=== PATIENT | female | born 1960 | race Two or more races ===

== ENCOUNTER 2021-05-06 09:19 | Emergency (ER) | payer MEDICAID ==
[~2021-05-06] VITALS: Ht 149.9 cm; Wt 60.0 kg
[~2021-05-06 09:19] MED LIST: ACYC-40 PO; ARIP5TAB13 PO; CLON-364 PO; LEVO88TA4 PO; PARO30TA3 PO; TRAZ50TA66 PO; Will bring list DOS
--- NOTE | 2021-05-06 09:20 | NUR ---
PT ANSHU FROM [facility] FOR C/O L-SIDED SUDDEN CP NONRADIATING. PT ALSO C/O RINGING IN BOTH EARS. PT HR IS 46, DENIES SOB/FATIGUE. PT RECEIVED 324 ASA ROOF SHINGLER. B. PT AXOX4, CHANGED INTO GOWN, ALL MONITORS IN PLACE, CALL LIGHT WITHIN REACH. SON AT BS.
--- NOTE | 2021-05-06 09:45 | NUR ---
REPORT TO ALEX NEGRO
--- NOTE | 2021-05-06 09:50 | NUR ---
Pt report received from ALEX Herrera and care assumed. Pt assessment completed. Pt states CP has resolved with rest with noted SB at 45bpm on monitor with good BP and sats 100% on RA. Pt states both ears hurt for the last 3 days with dry, hot, painful gums and tongue reported. Orders noted with magic mouthwash ordered.
--- NOTE | 2021-05-06 10:27 | NUR ---
Pt assisted to restroom and back. geochemical laboratory technician already completed draw. PCXR tech present upon our return to room. Pt tolerated standing and walking without return of CP and HR still 48 bpm upon placement back on monitor.
[2021-05-06] MEDS ORDERED: maalox/diphenh/lido/sucralfate 5 ML PO PRN (10:30)
[2021-05-06 10:33] LABS: BASOPHILS % (AUTO) 1 % (0-1); EOSINOPHILS % (AUTO) 1 % (1-7); LYMPHOCYTES % (AUTO) 26 % (22-44); MEAN CORPUSCULAR HEMOGLOBIN 32.7 pg (27.0-34.8); MEAN CORPUSCULAR HGB CONC 34.2 g/dL (32.4-35.8); MEAN PLATELET VOLUME 8.6 fL (7.4-10.4); MONOCYTES % (AUTO) 7 % (2-9); NEUTROPHILS % (AUTO) 65 % (42-75); PLATELET COUNT 282 x10^3/uL (130-400); RED BLOOD COUNT 3.98 x10^6/uL (3.82-5.3); RED CELL DISTRIBUTION WIDTH 13.5 % (9.6-15.2)
[2021-05-06 10:43] LABS: ALBUMIN 3.9 g/dL (3.4-5.0); ANION GAP 4 mmol/L (5-15); CALCIUM 9.1 mg/dL (8.5-10.1); CHLORIDE 108 mmol/L (98-107)
[2021-05-06 10:49] LABS: ALANINE AMINOTRANSFERASE 51 U/L (12-78); ALKALINE PHOSPHATASE 99 U/L (45-117); BILIRUBIN,TOTAL 0.5 mg/dL (0.2-1.0); TOTAL PROTEIN 7.6 g/dL (6.4-8.2); TROPONIN I < 0.015 ng/mL (0.000-0.045)
--- NOTE | 2021-05-06 10:55 | NUR ---
All lab and radiology results reviewed and chart marked for recheck by . Awaiting Magic Mouthwash from pharmacy to admin as ordered.
--- NOTE | 2021-05-06 11:03 | NUR ---
ED board notes that pt is to be d/c'd home. Still awaiting Magic mouthwash from pharmacy for pt as ordered.
[2021-05-06 11:37] VITALS: BP 129/72
== END 2021-05-06 11:39 | disposition home or self-care (01) ==
LOC: ED 11:15
DX: H65.03 Acute serous otitis media, bilateral (principal); R07.89 Other chest pain; K12.0 Recurrent oral aphthae
CPT/HCPCS: 36415; 71045; 80053; 84484; 85025; 93005; 99285

== ENCOUNTER 2021-05-11 01:20 | Emergency (ER) | payer MEDICAID ==
[~2021-05-11] VITALS: Ht 157.5 cm; Wt 70.0 kg
--- NOTE | 2021-05-11 01:52 | NUR ---
PT AMBULATORY W/ A STEADY GAIT TO THE BR, ACCOMPANIED BY SON.
[2021-05-11] MEDS ORDERED: KETOROLAC 30 MG/1 ML ONE (01:55)
[2021-05-11] MEDS ORDERED: CYCLOBENZAPRINE 10 MG TABLET ONE (01:55)
[2021-05-11] MEDS ORDERED: KETOROLAC 30 MG/1 ML IM ONE (02:00)
[2021-05-11] MEDS ORDERED: CYCLOBENZAPRINE 10 MG TABLET PO ONE (02:00)
[2021-05-11 02:04] VITALS: BP 118/55
--- NOTE | 2021-05-11 02:20 | NUR ---
Patient given discharge instructions and they have confirmed that they understand the instructions. Patient ambulatory with steady gait.
== END 2021-05-11 02:21 | disposition home or self-care (01) ==
LOC: ED 01:26
DX: M26.623 Arthralgia of bilateral temporomandibular joint (principal); G44.201 Tension-type headache, unspecified, intractable
CPT/HCPCS: 96372; 99283; J1885